=== PATIENT | female | born 1995 | race Caucasian/White ===

== ENCOUNTER 2016-10-05 17:41 | Inpatient (IN) | payer OTHER ==
[~2016-10-05] VITALS: Ht 154.9 cm; Wt 54.2 kg
[2016-10-05 17:43] VITALS: BP 127/79; PULSE 106; RESP 20; O2SAT 100
[2016-10-05 20:56] VITALS: BP 110/63; PULSE 89; O2SAT 99
--- NOTE | 2016-10-05 20:59 | ED.REPORT ---
HPI-Rash / Abscess Date of Service Oct 05, 2016 ED Provider: Larry Leone MD A 21 year old female with a history of depression, anxiety, panic disorder, borderline personality, and cystic acne presents to the ED complaining of a worsening abscess on her left shoulder. The pt was initially seen in Urgent Care for an I&D. The abscess was later reopened in the ED on 09/23/2016 and the pt was placed on Cephalexin, of which her last dose was this morning. The pt presents to the ED today because the abscess has been growing, hardening, and draining a significant amount. She denies fever, but Advil is no longer helping to relieve the pain. A wound culture was taken at [facility] and is due tomorrow, so sample is taken in the ED but is not sent. [place] sample is not visible in ED system. Nursing Notes Stated Complaint: ABCESS ON LEFT SHOULDER Chief Complaint: Skin Rash/Abscess Nursing Notes Reviewed: Yes ([facility], meds not reconciled) Allergies: Coded Allergies: No Known Allergies (Unverified , 10/02/16) General Time Seen by MD: 20:57 Chief Complaint Abscess Hx Obtained From: Patient Arrived By: Walk-in Symptom Duration: Since onset Recent Healthcare: Recent doctor visit, Recent hospitalization Similar Sx Previous: Yes Past Medical History Past Medical History cystic acne panic disorder depression anxiety borderline personality Past Surgical History I&D Smoking History Unknown if Ever Smoker Social History Alcohol Use: "Social" Other Social History: Poor social support Ambulatory Status Independent Review of Systems Review of Systems Note: abscess Constitutional: Reports: Fever Respiratory: Denies: Non-productive cough, Shortness of breath Cardiovascular: Denies: Chest pain GI: Denies: Abdominal pain, Nausea, Vomiting Musculoskeletal: Denies: Back pain, Neck pain Complete sys rev & neg: except as marked. Physical Exam Initial Vital Signs Vital Signs (First) Date Time Temp Pulse Resp B/P Pulse Ox O2 Delivery O2 Flow Rate FiO2 10/05/16 17:43 37.1 106 20 127/79 100 Room Air Initial VS: Reviewed, Vital signs abnormal General/Constitutional: Awake, Alert Skin: Color NL, Warm, Dry initial abscess incision site has no signs of cellulitis purulent drainage and tenderness inferior to this site, large area of swelling and tenderness no swelling or warmth, but concern for deep abscess multiple cutting scars on all extremities Head / Eyes: Atraumatic, Normocephalic, PERRL, EOMI ENT: Atraumatic, Airway patent, Mucous membranes moist Respiratory / Chest: Atraumatic, Breath sounds NL, Breath sounds = bilat, No respiratory distress Cardiovascular: Heart rate NL, Regular rhythm, Heart sounds NL Upper Extremity / MS: Atraumatic, Full range of motion Lower Extremity / Pelvis / MS: Atraumatic, Full range of motion Neurologic: Oriented X3, Speech NL, No motor deficits, No sensory deficits Neck: Atraumatic, Supple, Full range of motion Abdomen: Atraumatic, Soft, Non-tender Back: Atraumatic, Full range of motion Psychiatric: Affect NL, Mood NL Interpretation & Diagnostics Interpretation & Diagnostics: US Soft Tissue - Generic IMPRESSION: Findings consistent with confluent anscess formation/abscess in the proximal left arm. CT Angiogram Upper Extremity - Left IMPRESSION: Findings suspicious for myositis/fascitis involving the deltoid muscle associated with small ill-defined adjacent subcutaneous fat phlegmon/developing abscess. Small soft tissue defect noted in the lateral left ovary region suspect representing the site of incision and drainage. Lab Results Interpretation Result Diagram: 10/05/16223810/05/162238 Test 10/05/16 22:39 White Blood Count 8.2th/mm3 (3.8-10.1) Red Blood Count 3.87mil/mm3 (3.90-5.20) Hemoglobin 12.2g/dL (12.0-15.6) Hematocrit 35.3% (35.0-46.0) Mean Corpuscular Volume 91.2fL (81-100) Mean Corpuscular Hemoglobin 31.5pg (27.0-35.0) Mean Corpuscular Hemoglobin Concent 34.6% (32.0-37.0) Red Cell Distribution Width 11.8% (12.3-15.4) Platelet Count 272bil/L (150-400) Neutrophils (%) (Auto) 58.7% (40-74) Lymphocytes (%) (Auto) 27.1% (14-46) Monocytes (%) (Auto) 10.9% (4-12) Eosinophils (%) (Auto) 2.4% (0-5) Basophils (%) (Auto) 0.5% (0-3) Sodium Level 138mEq/L (134-144) Potassium Level 3.5mEq/L (3.5-5.2) Chloride Level 103mEq/L (97-108) Carbon Dioxide Level 22mmol/L (18-29) Blood Urea Nitrogen 8mg/dL (6-20) Creatinine 0.46mg/dL (0.57-1.00) Estimat Glomerular Filtration Rate 246mL/min (>59) Glucose Level 92mg/dL (60-99) Calcium Level 8.6mg/dL (8.5-10.1) Total Bilirubin 0.2mg/dL (0.0-1.2) Aspartate Amino Transf (AST/SGOT) 10U/L (0-50) Alanine Aminotransferase (ALT/SGPT) 5U/L (0-32) Alkaline Phosphatase 50U/L (25-150) Total Protein 6.7g/dL (6.4-8.4) Albumin 3.5g/dL (3.4-5.0) Human Chorionic Gonadotropin, Qual 0.500 (Negative) Hold Banda Top Tube Received (Received) Lab Results Interpretation: CBC normal CMP normal negative tox pending Patient has wound culture sent from [facility] on , results not currently available anticipated to be due tomorrow-so wound culture not repeated today Re-Eval/Medical Decision Med Decision/Clinical Course This is a 21-year-old healthy female who denies drug use presents with increasing pain and swelling in the left arm. Patient developed an abscess in the left shoulder that was drained on burn clinic, and came back in and had further drainage performed several days ago. She is in a rechecked was doing okay-but now has had increasing pain and swelling. She continued to have some purulent drainage-but now is having swelling and pain of an inch or 2 more distally in the arm. Eyes fevers or chills and has noticed complaints. She denies previous history of MRSA. She does have a history of self cutting. On exam she is nontoxic. Over the deltoid there is a simple 1 cm incision, which still has a trace amount of purulent coming from it without surrounding cellulitis. However distal this by about an inch and half and posterior is a large area of tenderness and possible fluctuance. I would again there is no external cellulitis and it feels like potentially deep abscess. The forms or murmurs are soft and nontender on the arm is neurovascularly intact. An ultrasound was obtained and confirms a distal abscess, and is not clearly evident that they the communicate given the concern for deeper abscess given the complete absence of overlying cellulitis, and the fact that this does not wheeze have the potential to communicate and be a more extensive abscess and be generally appropriate in the numbers department, discussed the case with surgery. They recommended obtaining CT imaging for surgical planning, admission to the hospitalist, and OR treatment is anticipated for the morning. The patient had been on cephalexin, and at this point is given IV clindamycin for polymicrobial coverage, along with MRSA coverage. The CT has been obtained and again suggests noncommunicating infection, and is also raised the concern by phone of the fascia reviewed the muscle, confirming that this drainage may best be performed in the OR setting. The patient is being admitted. The case is discussed with the hospitalist. Source of Hx: Old records Re-Evaluation/Progress : Time of Eval: 20:57 Patient Status: Condition unchanged Re-Evaluation/Progress Note: Pt informed of the need for admission and surgery during the initial interview. The pt understands and agrees with the plan. All questions are addressed at this time. Consultation #1: Referral / Consult Name: Cabrera Chaudhry MD Consulted With: Surgeon Call Returned at: 22:19 Home Companion: Agrees with eval, Agrees with plan Note: Consulted with Dr. Chaudhry, surgeon, regarding pt's case. Dr. Chaudhry recommends CT scan, admission, and possible surgery in the morning. Consultation #2: Referral / Consult Name: Radha Fernando MD Consulted With: Hospitalist Call Returned at: 23:57 Home Companion: Agrees with eval, Agrees with plan, Accepts admit Note: Spoke to Dr. Fernando, hospitalist, regarding pt's case. Dr. Fernando agrees with the evaluation and agrees to admit the pt. Counseled Regarding: Diagnosis, Lab results, Need for admission Discharge & Departure Impression: Primary Impression: Abscess of left arm Disposition: ADMITTED TO HOSPITAL Discharge Condition All VS Reviewed: Yes Condition: Stable Referrals: Case,Zahra SANDHU (PCP) Scribe Attestation Portions of this note were transcribed by Jeff Fletcher. I, Dr. Leone personally performed the history, physical exam and medical decision-making; I reviewed and confirmed the accuracy of the information in the transcribed note. Signed by: Alesia Lancaster, 10/06/2016, 00:33 copies to: Zahra Hyde Matthew F MD Oct 05, 2016 20:59 JEFF FLETCHER Oct 05, 2016 21:23
[2016-10-05] MEDS ORDERED: oxyCODONE-Acetamin 5-325 mg Tablet PO ONE (21:10)
[2016-10-05] MEDS ORDERED: Clindamycin Inj 900 MG in IV Premix 1 EACH IV ONE (22:25)
[2016-10-05] MEDS ORDERED: 0.9% Sodium Chloride 100 ML ONE (22:36)
[2016-10-05 22:49] LABS: BASOPHILS % (AUTO) 0.5 % (0-3); EOSINOPHILS % (AUTO) 2.4 % (0-5); MONOCYTES % (AUTO) 10.9 % (4-12); Mean Corpuscular Hemoglobin 31.5 pg (27.0-35.0); Mean Corpuscular Volume 91.2 fL (81-100); NEUTROPHILS % (AUTO) 58.7 % (40-74); Platelet Count 272 bil/L (150-400)
[2016-10-05 23:00] VITALS: BP 114/66; PULSE 85; O2SAT 100
[2016-10-06] VITALS (15 sets, daily range): BP systolic 101–125; BP diastolic 58–84; PULSE 14–136; RESP 11–20; O2SAT 92–100
[2016-10-06] MEDS ORDERED: 0.9% Sodium Chloride 1,000 ML IV SCH (00:21)
[2016-10-06] MEDS ORDERED: Ondansetron 2 mg/mL 2 mL Inj IVPUSH PRN ×4 (00:25→11:05)
[2016-10-06] MEDS ORDERED: Alum-Mag Hydrox-Simeth 30 mL Suspension PO PRN ×2 (00:25→00:50)
[2016-10-06] MEDS ORDERED: HYDROmorphone 0.5 mg/0.5 mL iSecure Syringe IVPUSH PRN (00:25)
[2016-10-06] MEDS ORDERED: LAMO200T2 PO (01:22)
[2016-10-06] MEDS ORDERED: CEPH500C PO (01:22)
[2016-10-06] MEDS ORDERED: KLO1T PO (01:22)
[2016-10-06] MEDS ORDERED: TRAZ-115 PO (01:22)
[2016-10-06] MEDS ORDERED: PROP10TA8 PO (01:22)
[2016-10-06] MEDS ORDERED: FLUO20TA28 PO (01:22)
[2016-10-06] MEDS ORDERED: HYDR100C2 PO (01:22)
[2016-10-06] MEDS: 0.9% Sodium Chloride 1,000 ML IV SCH ×2 (01:36→16:12)
--- NOTE | 2016-10-06 02:14 | PCM.HPMED ---
Subjective Date of Service Oct 06, 2016 Primary Provider: Admitting Physician: Radha Fernando MD Primary Care Physician: Zahra Hyde Attending Physician: Radha Fernando MD Admit Status: From the Emergency Department, 23-Hour Observation, Non-Telemetry Chief Complaint: Increasing swelling and pain left upper arm History of Present Illness: This is a 21-year-old female with a history of depression and anxiety panic disorder borderline personality disorder who comes in with increasing size and swelling of left upper arm. She was diagnosed with an abscess of her left upper arm she did have it incised and drained. This was done as an outpatient at her primary care provider's office [facility]. She was actually about 2 days ago. Is placed on oral Keflex and per ER doctor was thousand milligrams by mouth twice a day. He now notes increasing redness and swelling just below that area. She denies any fevers chills. She denies any drainage from it. Cultures are pending from the initial I&D. Her white count here is 8.2 with 59% polys 27% lymphs bicarbonate was noted to be 22. General surgery Dr. Chaudhry was also notified by ER Angela regarding this patient and he said to have a hospitalist do the admission and he will see the patient in the morning for possible OR I&D of this. Dr. Chaudhry suggested making the patient nothing by mouth after midnight. Patient does have a history of cystic acne and gets it on her face neck and shoulders and noted that the initial area started off appearing like cystic acne lesion. He does have a history of cutting but has not done that for 2 years. Allergies Coded Allergies: No Known Allergies (Unverified , 10/02/16) Home Medications Keflex thousand milligrams by mouth twice a day Other medications that she is on is pending at the time of this dictation for medication reconciliation. PMH History of anxiety and depression Panic disorder Borderline personality disorder Cystic acne Family History No history of recurrent infections or heart disease Social History Hx Alcohol Use: Yes (1-2/MONTH) Hx Substance Use: No Hx Tobacco Use: Yes (several cigarettes per week) Smoking Status: Unknown if Ever Smoker Living Arrangement: with Family Additional Information Patient denies any drug use such as heroin and cocaine and marijuana methamphetamine Exam Vital Signs Vital Sign - Last Date Time Temp Pulse Resp B/P Pulse Ox O2 Delivery O2 Flow Rate FiO2 10/06/16 01:42 36.4 92 111/69 10/05/16 23:00 100 Room Air 10/05/16 17:43 20 Exam Head: Normocephalic atraumatic. Eyes: PERRLA DC EOMI Neck, no adenopathy Chest: Clear to auscultation Cor: Regular rate and rhythm S1-S2 without murmur Abdomen: Soft nontender bowel sounds present Extremities: No pedal edema noted, does have area of incision at her upper left outer arm and just below that there is an indurated erythematous nondraining area noted Skin: No rashes but note above area on her left upper arm Psych: Appears to have normal mood and affect Neuro: Alert and oriented 3, motor and sensory are intact bilaterally Lab and Diagnostics Labs Laboratory Tests 72 Hours Test 10/05/16 22:39 White Blood Count 8.2th/mm3 (3.8-10.1) Red Blood Count 3.87mil/mm3 (3.90-5.20) Hemoglobin 12.2g/dL (12.0-15.6) Hematocrit 35.3% (35.0-46.0) Mean Corpuscular Volume 91.2fL (81-100) Mean Corpuscular Hemoglobin 31.5pg (27.0-35.0) Mean Corpuscular Hemoglobin Concent 34.6% (32.0-37.0) Red Cell Distribution Width 11.8% (12.3-15.4) Platelet Count 272bil/L (150-400) Neutrophils (%) (Auto) 58.7% (40-74) Lymphocytes (%) (Auto) 27.1% (14-46) Monocytes (%) (Auto) 10.9% (4-12) Eosinophils (%) (Auto) 2.4% (0-5) Basophils (%) (Auto) 0.5% (0-3) Sodium Level 138mEq/L (134-144) Potassium Level 3.5mEq/L (3.5-5.2) Chloride Level 103mEq/L (97-108) Carbon Dioxide Level 22mmol/L (18-29) Blood Urea Nitrogen 8mg/dL (6-20) Creatinine 0.46mg/dL (0.57-1.00) Estimat Glomerular Filtration Rate 246mL/min (>59) Glucose Level 92mg/dL (60-99) Calcium Level 8.6mg/dL (8.5-10.1) Total Bilirubin 0.2mg/dL (0.0-1.2) Aspartate Amino Transf (AST/SGOT) 10U/L (0-50) Alanine Aminotransferase (ALT/SGPT) 5U/L (0-32) Alkaline Phosphatase 50U/L (25-150) Total Protein 6.7g/dL (6.4-8.4) Albumin 3.5g/dL (3.4-5.0) Human Chorionic Gonadotropin, Qual 0.500 (Negative) Hold Banda Top Tube Received (Received) Result Diagram: 10/05/16223810/05/162238 Assessment & Plan # Left upper arm abscess, acute, present on admission Most likely related to cystic acne We will place on IV clindamycin Gen. surgery to see tomorrow for possible OR I&D # Psychiatric disorder, chronic, present on admission We will need to complete med this in reconciliation # Cystic acne, chronic, present on admission Continue current medication regimen # DVT prophylaxis Will use SCDs # CODE STATUS Full code Pain Evaluation: Adequate Pain Control VTE Mechanical Devices: Intermittant Pneumatic CD Resuscitation Status: CPR: Attempt Resuscitation Time spent 60 minutes Radha Fernando MD Oct 06, 2016 02:14
--- NOTE | 2016-10-06 03:46 | NUR ---
ADMIT Patient admit to MOC from the ED for surgery in the morning for Left arm abcess. Sore has been producing small amount of purulent drainage, requiring a couple of dressing changes. Patient has been cooperative with care. Reporting pain 4-5/10, mild nausea. Oriented to room and call light. Currently resting without issue.
[2016-10-06 03:56] LABS: APPEARANCE,URINE CLEAR (CLEAR,HAZY); COLOR,URINE YELLOW (YELLOW); OCCULT BLOOD,URINE NEGATIVE (NEGATIVE); PH,URINE 6.5 (5.0-8.0); UROBILINOGEN,URINE NORMAL (NORMAL)
[2016-10-06] MEDS: Clindamycin Inj 900 MG in IV Premix 1 EACH IV SCH ×2 (08:29→16:12)
--- NOTE | 2016-10-06 09:49 | NUR ---
To OR Pt left floor via stretcher to OR at 0930. IV WALT Addendum: 10/06/16 at 1326 by KATIE FLOWERS RN Pt arrived to room 240-1 via stretcher from OR at 1153.
--- NOTE | 2016-10-06 09:58 | DRSVH ---
PROCEDURE: CT UPPER EXTREMITY LT W CON INDICATIONS: 21 year-old female with reported history of left shoulder abscess status post I&D with w orsening infection. COMPARISON: [facility], , EXTREMITY LTD, 10/05/2016, 21:28. TECHNIQUE: Multiple 1 mm axial images obtained through the left shoulder following the administration of intravenous contrast. 1 mm coronal and sagittal reformations were performed. FINDINGS: Bones: No bony erosions or periosteal reaction. No fractures or dislocation. Soft tissues: There is a peripherally enhancing loculated collection measuring up to approximately 0. 6 cm in thickness tracking along the superficial fascia of the deltoid muscle involving approximately 9 cm in craniocaudal extent and approximately 6 cm in anteroposterior extent. Findings are compatib le with an abscess or phlegmon. There is mild hypoattenuation of the underlying deltoid muscle abelino tible with myositis. No intramuscular fluid collections. Mild overlying subcutaneous fat stranding is demonstrated as well as a cutaneous incision site overlying the proximal lateral aspect of the del toid. There are few mildly enlarged left axillary lymph nodes measuring up to 1 cm in short axis which are likely reactive. Visualized left lung is clear. IMPRESSION: 1. Loculated peripherally enhancing fluid collection tracking along the superficial fascia of the le ft deltoid muscle consistent with fasciitis with an abscess/phlegmon. Associated hypoattenuation of the deltoid muscle is consistent with myositis. 2. No evidence of osteomyelitis. Dictated by: Aakash Vogel M.D. on 10/06/2016 at 9:57 Approved by: Aakash Vogel M.D. on 10/06/2016 at 9:57
[2016-10-06] MEDS ORDERED: Lactated Ringer's 1,000 ML IV ONE (10:21)
[2016-10-06] MEDS ORDERED: Bupivacaine-MPF 0.5% W/EPI 30 mL Inj INFILTRATE ONE (10:25)
[2016-10-06] MEDS ORDERED: Acetaminophen IV 1,000 MG in IV Premix 1 EACH IV PRN (10:40)
[2016-10-06] MEDS ORDERED: diphenhydrAMINE 25 mg Capsule PO PRN (10:40)
--- NOTE | 2016-10-06 10:40 | DRSVH ---
CORRECTED ACCESSION/PLACER NUMBER ON 10/06/16 PROCEDURE: US EXTREMITY SONOGRAM LIMITED ([id number]) INDICATIONS: eval for ? abscess L arm TECHNIQUE: Real-time scanning was performed of the left shoulder region, with image documentation. COMPARISON: [facility], CT, CT UPPER EXTREMITY LT W CON, 10/05/2016, 23:53. FINDINGS: Several small hypoechoic regions within the soft tissues of the left shoulder are present. There is a cluster of adjacent hypoechoic foci, spanning roughly 27 mm x 9 mm x 32 mm, consistent wit h multiple small adjacent abscesses. Superior to this region, there are 2 adjacent foci measuring 7 m m and 4 mm. IMPRESSION: Multiple small regions of phlegmon/abscess within the left upper extremity. Dictated by: Mariza Castano M.D. on 10/06/2016 at 8:58 Approved by: Mariza Castano M.D. on 10/06/2016 at 8:58
[2016-10-06] MEDS ORDERED: Lactated Ringer's 1,000 ML IV SCH (11:03)
[2016-10-06] MEDS ORDERED: Lactated Ringer's 500 ML IV PRN (11:03)
--- NOTE | 2016-10-06 11:04 | PCM.HPANE ---
Patient Data Date of Service: Oct 06, 2016 Surgeon Admitting Provider:Radha Fernando MD Attending Provider:Radha Fernando MD Primary Care Physician:Zahra Hyde Other Provider: Reason for Visit L Deltoid Abscess Ht/WT & BMI Height (Feet): 5 Height (Inches): 1.00 Weight (Kilograms): 54.200 Body Mass Index 22.56 Allergies Coded Allergies: No Known Allergies (Unverified , 10/02/16) Diabetes History Hx Diabetes?: No MRSA MRSA: No Medications Home Meds Incl Beta Christian: No Reported Medications Clonazepam 1 Mg Tablet1 Mg PO TID #90 10/06/16 Fluoxetine 20 Mg TabletUnknown Dose PO DAILY #30 10/06/16 Lamotrigine 200 Mg [id number] Mg PO HS #30 10/06/16 Propranolol HCl 10 Mg [id number] Mg PO BID #60 10/06/16 Hydroxyzine Pamoate (HydrOXYzine Pamoate)100 Mg [id number] Mg PO DIRECTED PRN For Anxiety or Agitation #30 10/06/16 Trazodone 50 Mg [id number] Mg PO HS #30 10/06/16 Cephalexin 500 Mg Capsule1,000 Mg PO BID #40 10/06/16 History History of ENT Problems?: No Hx of Heart Problems?: No Cardiovascular History: Denies:: Congestive Heart Failure Hypertension Hx of Respiratory Problem?: Yes Respiratory History: Positive for:: Asthma Denies:: Tuberculosis Hx Neurologic Problems?: No Hx of GI Problems?: Yes Hx of Problems?: Yes Genitourinary History: Positive for:: Urinary Tract Infection Female Hx: Denies:: Currently Pelvic Inflammatory Problems with Breasts? Hx Musculoskeletal Problems?: No Hx of Psycho/Social Problems?: Yes Psycho Social History: Positive for:: Anxiety Denies:: Hx Depression Hx Surgeries?: No Hx Any Other Health Problems?: No History Blood Transfusions: Positive for:: Accept Blood Products? Denies:: Blood Transfusions Hx Diabetes: No Hx Alcohol Use: Yes (1-2/MONTH)Hx Substance Use: No Smoking Status: Unknown if Ever Smoker Approx How Many Cigarettes/day: 0-2 Stop/Bang Treated for Sleep Apnea?: No Do You Have a CPAP Machine?: No S-Snoring: Do You Snore Loudly: No T-Tired: feel tired, fatigued: No O-Obsered: Observed not breath: No P-Blood Pressure: treated: No B- Body Mass Index > 35 kg/m2: No A- Age over 50: No N- Neck Large Circumference: No G- Gender Male: No ARMANDO Total Score: 0 ARMANDO Risk Assessment: Low Risk, <3 Yes Risk Assessment Category Category 1A: Patient has history of documented sleep apnea, and HAS NOT received any narcotic, sedative or anesthesia administration during this stay. Category 1B: Patient has history of documented sleep apnea, and HAS received any narcotic , sedative or anesthesia administration during this stay Category 2: Patient has SUSPECTED Obstructive Sleep Apnea, and HAS received any narcotic , sedative or anesthesia administration during this stay. Category 3: Patient has SUSPECTED Obstructive Sleep Apnea and HAS NOT received narcotic, sedative or anesthesia administration during this stay. Category 4: Outpatient in Procedural Areas with known sleep apnea or who screen positive for High Risk via the STOP/BANG questionnaire. Exam Exam Vital Signs Vital Signs Date Time Temp Pulse Resp B/P Pulse Ox O2 Delivery O2 Flow Rate FiO2 10/06/16 11:00 136 14 125/74 99 Room Air 10/06/16 10:55 36.1 122 19 111/58 97 Simple Mask 8 10/06/16 08:35 36.5 96 16 101/69 100 Room Air General Appearance: Alert, Oriented X3 HEENT/AIRWAY: MP 1 Lungs: Clear to Auscultation Heart: Exam Unremarkable Meds/Labs/Diagnostics Admission Meds Current Medications Oxycodone/ Acetaminophen 2 tab 2 tab ONCE ONCE PO Last administered on 21:29; Start 10/05/16 at 21:10; Stop 10/05/16 at 21:11; Status DC Clindamycin Phosphate/ Dextrose 900 mg/ Premix 50 ml @ 100 mls/hr ONCE ONCE IV Last administered on 10/05/16 22:46; Start 10/05/16 at 22:25; Stop 10/05/16 at 22:54; Status DC Sodium Chloride 100 ml @ ud STK-MED ONCE .ROUTE Last administered on 10/05/16 22:46; Start 10/05/16 at 22:36; Stop 10/05/16 at 22:37; Status DC Sodium Chloride 1,000 ml @ 100 mls/hr Q10H IV Last administered on 10/06/16 01 :36; Start 10/06/16 at 00:50 Clindamycin Phosphate/ Dextrose 900 mg/ Premix 50 ml @ 100 mls/hr Q8 IV Last administered on 10/06/16 08:29; Start 10/06/16 at 08:30 Lactated Ringer's (Lr) 1,000 ml @ ud STK-MED ONCE IV Last administered on 10:21; Start 10/06/16 at 10:21; Stop 10/06/16 at 10:24; Status DC Bupivacaine HCl/ Epinephrine Bitart (Sensorcaine-MPF 0.5% W/EPI Inj) 30 ml STK- MED ONCE INFILTRATE Last administered on 10/06/16 10:25; Start 10/06/16 at 10:25 ; Stop 10/06/16 at 10:26; Status DC Labs Test 10/05/16 22:39 10/06/16 03:00 White Blood Count 8.2th/mm3 (3.8-10.1) Red Blood Count 3.87mil/mm3 (3.90-5.20) Hemoglobin 12.2g/dL (12.0-15.6) Hematocrit 35.3% (35.0-46.0) Mean Corpuscular Volume 91.2fL (81-100) Mean Corpuscular Hemoglobin 31.5pg (27.0-35.0) Mean Corpuscular Hemoglobin Concent 34.6% (32.0-37.0) Red Cell Distribution Width 11.8% (12.3-15.4) Platelet Count 272bil/L (150-400) Neutrophils (%) (Auto) 58.7% (40-74) Lymphocytes (%) (Auto) 27.1% (14-46) Monocytes (%) (Auto) 10.9% (4-12) Eosinophils (%) (Auto) 2.4% (0-5) Basophils (%) (Auto) 0.5% (0-3) Sodium Level 138mEq/L (134-144) Potassium Level 3.5mEq/L (3.5-5.2) Chloride Level 103mEq/L (97-108) Carbon Dioxide Level 22mmol/L (18-29) Blood Urea Nitrogen 8mg/dL (6-20) Creatinine 0.46mg/dL (0.57-1.00) Estimat Glomerular Filtration Rate 246mL/min (>59) Glucose Level 92mg/dL (60-99) Calcium Level 8.6mg/dL (8.5-10.1) Total Bilirubin 0.2mg/dL (0.0-1.2) Aspartate Amino Transf (AST/SGOT) 10U/L (0-50) Alanine Aminotransferase (ALT/SGPT) 5U/L (0-32) Alkaline Phosphatase 50U/L (25-150) Total Protein 6.7g/dL (6.4-8.4) Albumin 3.5g/dL (3.4-5.0) Human Chorionic Gonadotropin, Qual 0.500 (Negative) Hold Banda Top Tube Received (Received) Urine Color Yellow (YELLOW) Urine Appearance Clear (CLEAR,HAZY) Urine pH 6.5 (5.0-8.0) Urine Specific [place] 1.010 (1.003-1.035) Urine Protein Negativemg/dL (NEG,TRACE) Urine Glucose (UA) Negativemg/dL (NEGATIVE) Urine Ketones Negativemg/dL (NEGATIVE) Urine Occult Blood Negative (NEGATIVE) Urine Nitrite Positive (NEGATIVE) Urine Bilirubin Negative (NEGATIVE) Urine Urobilinogen Normalmg/dL (NORMAL) Urine Leukocyte Esterase Trace (NEGATIVE) Urine RBC 0-2/hpf (0-2) Urine WBC 0-5/hpf (0-5) Urine Epithelial Cells Moderate/hpf (NONE-MOD) Urine Crystals None seen (NONE SEEN) Urine Bacteria None/hpf (NONE-FEW) Urine Hyaline Casts None/lpf (NONE) Urine Granular Casts None seen (NONE SEEN) Urine Waxy Casts None seen (NONE SEEN) Urine Red Blood Cell Casts None seen (NONE SEEN) Urine White Blood Cell Casts None seen (NONE SEEN) Urine Mucus None seen (None Seen) Urine Trichomonas None seen (NONE SEEN) Urine Yeast None (NONE SEEN) Urine Culture Reflexed Indicated Urine Opiates Screen Negative Urine Methadone Screen Negative Urine Barbiturates Screen Negative Urine Amphetamines Screen Negative Urine Benzodiazepines Screen Negative Urine Cocaine Metabolite Screen Negative Urine Cannabinoids Screen Negative Plan Impression Patient chart reviewed, patient interviewed and anesthestic plan with risks, benefits, and alternatives discussed, and informed consent obtained. ASA Physical Status: ASA2 Mod Systemic Disease Anesthetic Plan: GA Bene/Risks/Altern/Consents: Yes HP Complete Prior to Induction: Yes Keny Gonzales MD Oct 06, 2016 11:04
[2016-10-06] MEDS ORDERED: fentaNYL-PF 50 mCg/mL 2 mL Inj IVPUSH PRN (11:05)
[2016-10-06] MEDS ORDERED: MetoCLOpramide 5 mg/mL 2 mL Inj IVPUSH PRN (11:05)
[2016-10-06] MEDS ORDERED: Dexamethasone 4 mg/mL Inj IVPUSH PRN (11:05)
[2016-10-06] MEDS ORDERED: HYDROmorphone 1 mg/mL Inj IVPUSH PRN (11:05)
[2016-10-06] MEDS ORDERED: Phenylephrine 10,000 mCg/mL Inj IVPUSH PRN (11:05)
[2016-10-06] MEDS ORDERED: EPHEDrine Sulfate 50 mg/mL Inj IVPUSH PRN (11:05)
--- NOTE | 2016-10-06 11:05 | PCM.ANEP1 ---
Post Anesthesia Phase 1 PACU Phase 1 Assessment Date of Service: Oct 06, 2016 Vital Signs Vital Signs Date Time Temp Pulse Resp B/P Pulse Ox O2 Delivery O2 Flow Rate FiO2 10/06/16 11:00 136 14 125/74 99 Room Air 10/06/16 10:55 36.1 122 19 111/58 97 Simple Mask 8 10/06/16 08:35 36.5 96 16 101/69 100 Room Air Anesthetic Administered: GA Pain: Yes Pain Scale Score: 4 Nausea or Vomiting: No Oxygen Delivery: Room Air Lungs: Clear to Auscultation Keny Gonzales MD Oct 06, 2016 11:05
[2016-10-06] MEDS ORDERED: Ketamine 10 mg/mL 20 mL Inj ONE (11:07)
--- NOTE | 2016-10-06 11:08 | PCM.ANEP2 ---
Post Anesthesia Evaluation ASA/CMS Post Anesthesia VS in Patient's Normal Range?: Yes Resp Stable; Airway Patent?: Yes CV Function & Hydration Stable: Yes Mental Status Recovered?: Yes Pain control Satisfactory?: Yes N/V Control Satisfactory?: Yes Keny Gonzales MD Oct 06, 2016 11:08
--- NOTE | 2016-10-06 11:08 | CONS ---
[address] [address] CONSULTATION REPORT PATIENT: HAILEY LOMBARDI : 1995 MR#: [id number] ADMIT: 10/05/2016 JOB ID: [id number] DATE OF SERVICE: 10/06/2016 CHIEF COMPLAINT/IDENTIFICATION: I have been asked to see this 21-year-old female with left shoulder abscess. HISTORY OF PRESENT ILLNESS: The patient presented on October 02 with a 4-day-old abscess on the left shoulder. She underwent what was described as a 2 cm incision and drainage with packing in the emergency department, but now returns with increased left shoulder pain, and a CT scan and ultrasound suggestive of extending abscess. The patient has a history of cutting reportedly in the distant past, and cystic acne. PAST MEDICAL HISTORY: As above. MEDICATIONS: The patient is currently in the hospital on IV clindamycin. PHYSICAL EXAMINATION: She is nontoxic. She has old scar fixation on both extremities, multiple tattoos. She does have what appears to be some more recent injuries on the distal left forearm. On the left shoulder, she has a punctate lesion with some expressible pus, no clear fluctuance, and what appears to have been the erythema that has completely resolved by markings. LABORATORY DATA: White count is 8.2, hematocrit 35.2. IMAGING: She has had upper extremity CT and ultrasound that seems to demonstrate some loculated peripherally enhancing fluid tracking along the superficial fascia of the left deltoid muscle consistent with fasciitis versus abscess versus phlegmon, with some suggestion of myositis. IMPRESSION/PLAN: It seems that this woman has a soft tissue infection that would benefit from wider opening, as she may have undrained pus deep, but she also may have the beginnings of some sort of fasciitis. We discussed the length of the incision and the location, and the patient and her mother agreed to proceed. We will go to the operating room later this morning.
--- NOTE | 2016-10-06 11:16 | OP ---
[address] [address] OPERATIVE REPORT PATIENT: HAILEY LOMBARDI : 1995 MR#: [id number] ADMIT: 10/05/2016 JOB ID: [id number] DATE OF SURGERY: 10/06/2016 PREOPERATIVE DIAGNOSIS(ES): Left arm abscess. POSTOPERATIVE DIAGNOSIS(ES): Left arm abscess. PROCEDURE PERFORMED: Incision and drainage of left arm abscess. SURGEON: Aurelio Wright MD. INDICATIONS: A 21-year-old female with a left arm abscess. FINDINGS: The patient had a collapsed abscess cavity that extended for 15 cm as described below. DESCRIPTION OF PROCEDURE: The patient was brought to the operating room. General anesthetic was administered with an LMA. Left shoulder was prepped and draped in a sterile fashion. Surgical time-out was performed. The patient was on therapeutic antibiotics. There was no real expressible pus from out the punctate incision from compressing the left upper arm. I placed one leg of DeBakey forceps through this, and was able to track down distally to the area of maximal tenderness. I used cautery to cut down on this arm of the forceps, extending the incision for 15 cm, which was the length of the undermining. The patient essentially had a collapsed abscess cavity with some disruption of the fascial planes external to the deltoid muscle. There was no significant pus to be drained but the patient did have clear evidence of soft tissue infection with some undermining but no extensive fasciitis. I did break up any loculations along the external surface of the deltoid fascia with my finger, irrigated out with sterile saline. Hemostasis was achieved with cautery and we then packed the wound with a single 4 x 4 gauze, followed by a dry dressing. The patient was extubated and transferred to the recovery room, where she was awakening. She may well go home later on today with followup [facility].
[2016-10-06] MEDS ORDERED: Propofol 10,000 mCg/mL 20 mL Inj ONE (12:13)
[2016-10-06] MEDS ORDERED: Dexamethasone 4 mg/mL Inj ONE (12:13)
[2016-10-06] MEDS ORDERED: Lidocaine PF 1% 30 mL Inj ONE (12:13)
[2016-10-06] MEDS ORDERED: Ondansetron 2 mg/mL 2 mL Inj ONE (12:13)
[2016-10-06] MEDS ORDERED: fentaNYL-PF 50 mCg/mL 2 mL Inj ONE (13:46)
--- NOTE | 2016-10-06 14:35 | NUR ---
Social Work Screening/Readiness for Discharge D: EMR Reviewed. Pt is a 21Y old female Igor for L Deltoid Abscess. Insurance is [employer]. PCP is dr. Zahra Hyde. Per EMR, Pt lives at home with family in [place]. Pt is diagnoses with Anxiety, Depression, Panic Disorder and BPD. Pt has a history of self harm and cystic acne. No identified IVDU. Pt was seen by surgery and underwent an I&D this morning to drain the abcess. SW anticipates Pt to discharge in 1-2 pending clinical course. SW will need to follow up with family and ensure no discharge needs based on significant MH diagnosis. SW anticipates Pt to discharge home with no needs via POV when medically stable. A: Pt with MH diagnosis P: SW anticipates Pt to discharge home via POV with no needs when medically stable. SW will need to follow up with Pt at bedside to ensure no discharge needs. SW will continue to follow. OBINNA Tsang
--- NOTE | 2016-10-06 17:45 | NUR ---
Dressing Dressing beginning to slip down pt arm and partially exposing I/D wound. Dressing reinforced with Kerlix. Dressing changes to be completed BID beginning 1/4 AM.
--- NOTE | 2016-10-06 19:57 | PCM.PNMED ---
Subjective Date of Service Oct 06, 2016 Subjective Patient now postop, pain is controlled. No fevers or chills, nausea vomiting. Decreased appetite Exam Vital Signs Vital Sign - Last Date Time Temp Pulse Resp B/P Pulse Ox O2 Delivery O2 Flow Rate FiO2 10/06/16 16:53 37.5 103 16 115/81 99 Room Air 10/06/16 10:55 8 Intake and Output 10/05/16 10/05/16 10/06/16 Cumulative From/Thru 15:00 23:00 07:00 10/05/16 17:43 - 10/06/16 03:00 Intake Total 260 ml 260 ml Balance 260 ml 260 ml IV Total 260 ml 260 ml Exam General: Alert, Oriented X3, NAD Head: Normocephalic, atraumatic Eyes: NAVIN, EOMI, no scleral Icterus Chest: clear to auscultation B/L, no wheezing rales or rhonchi Heart: Regular rate and rhythm. Normal S1, S2, no murmurs noted Abdomen: soft, non-tender. Bowel sounds are normoactive. No guarding or rebound. Extremities: no cyanosis, clubbing or edema. Left shoulder bandage clean and dry IVs and Medications Medications Reviewed: Medications were reviewed in detail Lab and Diagnostics Result Diagram: 10/05/16223810/05/162238 Assessment & Plan # Left upper arm abscess, acute, present on admission Most likely related to cystic acne which is how it started according to the patient. She had popped the acne at least once. Continue IV clindamycin She was taken to surgery for I&D today, 15 cm collapsed abscess noted. # Psychiatric disorder, chronic, present on admission -Continue home meds # Cystic acne, chronic, present on admission Continue current medication regimen # DVT prophylaxis Will use SCDs # CODE STATUS Full code . Disposition: Likely home tomorrow VTE Mechanical Devices: Intermittant Pneumatic CD Resuscitation Status: CPR: Attempt Resuscitation Yair Iyer DO Oct 06, 2016 19:57
[2016-10-07] MEDS: Clindamycin Inj 900 MG in IV Premix 1 EACH IV SCH ×2 (00:23→08:03)
[2016-10-07] MEDS: 0.9% Sodium Chloride 1,000 ML IV SCH (00:24)
[2016-10-07 00:32] VITALS: BP 106/68; PULSE 79; RESP 16; O2SAT 99
[2016-10-07 05:00] VITALS: BP 102/64; PULSE 80; RESP 12; O2SAT 99
--- NOTE | 2016-10-07 05:30 | NUR ---
L arm Wound s/p I/D on 10/06/10, left arm with gauze dressing c/d/i, pending wound culture
[2016-10-07 07:09] LABS: BASOPHILS % (AUTO) 0.2 % (0-3); EOSINOPHILS % (AUTO) 0.3 % (0-5); MONOCYTES % (AUTO) 10.8 % (4-12); Mean Corpuscular Hemoglobin 31.6 pg (27.0-35.0); NEUTROPHILS % (AUTO) 72.8 % (40-74); Platelet Count 288 bil/L (150-400)
[2016-10-07 08:30] VITALS: BP 102/66; PULSE 77; RESP 18; O2SAT 98
[2016-10-07] MEDS ORDERED: CLIN-78 PO (10:24)
--- NOTE | 2016-10-07 10:25 | PCM.DIMED ---
Discharge Instructions Date of Service Oct 07, 2016 Dates of Hospitalization Oct 05, 2016 at 23:02 Discharge Diagnosis Discharge Diagnosis Cellulitis with abscess Diet No restrictions Activity Limited until seen by PCP Call your provider Fever or Chills, Bleeding, Chest pain, Excessive diarrhea, Weakness (unilateral) Patient Instructions Follow-up plan follow up with surgery in 1 week Follow-up with PCP in: 1 week Yair Iyer DO Oct 07, 2016 10:25
--- NOTE | 2016-10-07 10:51 | NUR ---
Social Work: Readiness for d/c Data: Pt is on day 2 of hospitalization. EMR reviewed, pt discussed in rounds. MD states pt likely to d/c today. FISH FARMER met with pt and mother regarding pt's mental health history. Pt states that she is working with her PCP to find an outpt MH counselor and declined any resources form [employer]. No further d/c needs anticipated at this time. FISH FARMER will continue to follow if needs arise. Assessment: Pt who is independent at baseline. Plan: Pt will d/c home via POV with mother when ready for d/c, likely today. Pt declining MH resources and getting set up with counselor through PCP. No further d/c needs anticipated at this time. FISH FARMER will continue to follow if needs arise. OBINNA Ogden
--- NOTE | 2016-10-07 11:18 | NUR ---
Social Work: Discharge Data: Pt is on day 2 of hospitalization. D/C orders are in. Pt states that she is working with her PCP to find an outpt MH counselor and declined any resources from [employer]. No further d/c needs anticipated at this time. BOAT OAR MAKER will continue to follow if needs arise. Assessment: Pt who is independent at baseline. Plan: Pt will d/c home via POV with mother today. Pt declining MH resources and getting set up with counselor through PCP. No further d/c needs anticipated at this time. [employer]KER will continue to follow if needs arise. OBINNA Ogden
--- NOTE | 2016-10-07 14:00 | NUR ---
Discharge Patient discharge ambulatory accompanied by her mom. Notes, instructions and hard copy of script given and well understood by patient and parent. Denies any discomfort at the time of discharge. Personal belongings and items from the safe given to patient.
--- NOTE | 2016-10-07 19:51 | PCM.DC.MED ---
Discharge Summary Date of Service Oct 07, 2016 Dates of Hospitalization Date of Hospital Admission Oct 05, 2016 at 23:02 Date of Discharge: Oct 07, 2016 Providers: Admitting Physician: Radha Fernando MD Primary Care Physician: Zahra Hyde Attending Physician: Radha Fernando MD Diagnosis at Time of Discharge Diagnosis at Time of Discharge Cellulitis with abscess Consultations Surgery Procedures XRay, CTs & MRIs Left upper extremity CT IMPRESSION: 1. Loculated peripherally enhancing fluid collection tracking along the superficial fascia of the left deltoid muscle consistent with fasciitis with an abscess/phlegmon. Associated hypoattenuation of the deltoid muscle is consistent with myositis. 2. No evidence of osteomyelitis. Invasive Procedures I&D of left shoulder abscess Brief History This is a 21-year-old female with a history of depression and anxiety panic disorder borderline personality disorder who comes in with increasing size and swelling of left upper arm. She was diagnosed with an abscess of her left upper arm she did have it incised and drained. This was done as an outpatient at her primary care provider's office [facility]. She was actually about 2 days ago. Is placed on oral Keflex and per ER doctor was thousand milligrams by mouth twice a day. He now notes increasing redness and swelling just below that area. She denies any fevers chills. She denies any drainage from it. Cultures are pending from the initial I&D. Her white count here is 8.2 with 59% polys 27% lymphs bicarbonate was noted to be 22. General surgery Dr. Chaudhry was also notified by ER Angela regarding this patient and he said to have a hospitalist do the admission and he will see the patient in the morning for possible OR I&D of this. Dr. Chaudhry suggested making the patient nothing by mouth after midnight. Patient does have a history of cystic acne and gets it on her face neck and shoulders and noted that the initial area started off appearing like cystic acne lesion. She does have a history of cutting but has not done that for 2 years. Hospital Course She was admitted for left upper extremity abscess, surgery was consulted. She was taken to the OR for an I&D 10/06/2016 with no reported complications. She was observed overnight and did well. She was discharged home in stable condition. Prescription for clindamycin was sent with her at discharge. She will need follow-up with her PCP in one week, sooner if condition worsens in anyway. She was also instructed to follow-up with surgery. Delineated problem list as below # Left upper arm abscess, acute, present on admission Most likely related to cystic acne which is how it started according to the patient. She had popped the acne at least once. Continue IV clindamycin She was taken to surgery for I&D today, 15 cm collapsed abscess noted. # Psychiatric disorder, chronic, present on admission -Continue home meds # Cystic acne, chronic, present on admission Continue current medication regimen Exam Vital Signs (Last) Date Time Temp Pulse Resp B/P Pulse Ox O2 Delivery O2 Flow Rate FiO2 10/07/16 08:30 36.6 77 18 102/66 98 Room Air 10/06/16 10:55 8 Test 10/05/16 22:39 10/06/16 03:00 10/07/16 06:15 Total Bilirubin 0.2mg/dL (0.0-1.2) Aspartate Amino Transf (AST/SGOT) 10U/L (0-50) Alanine Aminotransferase (ALT/SGPT) 5U/L (0-32) Alkaline Phosphatase 50U/L (25-150) Total Protein 6.7g/dL (6.4-8.4) Albumin 3.5g/dL (3.4-5.0) Human Chorionic Gonadotropin, Qual 0.500 (Negative) Hold Banda Top Tube Received (Received) Urine Color Yellow (YELLOW) Urine Appearance Clear (CLEAR,HAZY) Urine pH 6.5 (5.0-8.0) Urine Specific [place] 1.010 (1.003-1.035) Urine Protein Negativemg/dL (NEG,TRACE) Urine Glucose (UA) Negativemg/dL (NEGATIVE) Urine Ketones Negativemg/dL (NEGATIVE) Urine Occult Blood Negative (NEGATIVE) Urine Nitrite Positive (NEGATIVE) Urine Bilirubin Negative (NEGATIVE) Urine Urobilinogen Normalmg/dL (NORMAL) Urine Leukocyte Esterase Trace (NEGATIVE) Urine RBC 0-2/hpf (0-2) Urine WBC 0-5/hpf (0-5) Urine Epithelial Cells Moderate/hpf (NONE-MOD) Urine Crystals None seen (NONE SEEN) Urine Bacteria None/hpf (NONE-FEW) Urine Hyaline Casts None/lpf (NONE) Urine Granular Casts None seen (NONE SEEN) Urine Waxy Casts None seen (NONE SEEN) Urine Red Blood Cell Casts None seen (NONE SEEN) Urine White Blood Cell Casts None seen (NONE SEEN) Urine Mucus None seen (None Seen) Urine Trichomonas None seen (NONE SEEN) Urine Yeast None (NONE SEEN) Urine Culture Reflexed Indicated Urine Opiates Screen Negative Urine Methadone Screen Negative Urine Barbiturates Screen Negative Urine Amphetamines Screen Negative Urine Benzodiazepines Screen Negative Urine Cocaine Metabolite Screen Negative Urine Cannabinoids Screen Negative White Blood Count 11.5th/mm3 (3.8-10.1) Red Blood Count 3.45mil/mm3 (3.90-5.20) Hemoglobin 10.9g/dL (12.0-15.6) Hematocrit 31.4% (35.0-46.0) Mean Corpuscular Volume 91.0fL (81-100) Mean Corpuscular Hemoglobin 31.6pg (27.0-35.0) Mean Corpuscular Hemoglobin Concent 34.7% (32.0-37.0) Red Cell Distribution Width 11.6% (12.3-15.4) Platelet Count 288bil/L (150-400) Neutrophils (%) (Auto) 72.8% (40-74) Lymphocytes (%) (Auto) 15.4% (14-46) Monocytes (%) (Auto) 10.8% (4-12) Eosinophils (%) (Auto) 0.3% (0-5) Basophils (%) (Auto) 0.2% (0-3) Sodium Level 140mEq/L (134-144) Potassium Level 4.4mEq/L (3.5-5.2) Chloride Level 106mEq/L (97-108) Carbon Dioxide Level 21mmol/L (18-29) Blood Urea Nitrogen 5mg/dL (6-20) Creatinine 0.44mg/dL (0.57-1.00) Estimat Glomerular Filtration Rate 259mL/min (>59) Glucose Level 83mg/dL (60-99) Calcium Level 8.5mg/dL (8.5-10.1) Discharge Medications Discharge Medications Clindamycin (Clindamycin) 300 Mg Capsule 300 MG PO QID Prescribed by: MARTHA IYER DO Clonazepam (Clonazepam) 1 Mg Tablet 1 MG PO TID (Reported) Fluoxetine (Fluoxetine) 20 Mg Tablet Unknown Dose PO DAILY (Reported) Lamotrigine (Lamotrigine) 200 Mg Tablet 200 MG PO HS (Reported) Propranolol HCl (Propranolol HCl) 10 Mg Tablet 10 MG PO BID (Reported) Trazodone (Trazodone) 50 Mg Tablet 50-100 MG PO HS (Reported) As needed Hydroxyzine Pamoate (HydrOXYzine Pamoate) 100 Mg Capsule 25-100 MG PO DIRECTED PRN PRN For Anxiety or Agitation (Reported) Followup Plan Follow-up plan follow up with surgery in 1 week Discharge Diet: No restrictions Discharge Activity: Limited until seen by PCP Follow-up with PCP in: 1 week Time spent 45 minutes Martha Iyer DO Oct 07, 2016 19:51
== END 2016-10-07 13:45 | disposition home or self-care (01) | DRG 603 ==
LOC: SED 17:41 → OBSVTOIN 23:02 → OFED 23:02 → MOC 10-06 02:00
PROVIDERS: ADMIT Specialist; ATTEND Specialist
PROC: 0J9F0ZX Drainage of Left Upper Arm Subcutaneous Tissue and Fascia, Open Approach, Diagnostic (ICD-10-PCS; principal; 2016-10-06 10:00)
DX: L02.414 Cutaneous abscess of left upper limb (principal); F41.8 Other specified anxiety disorders; F60.3 Borderline personality disorder; F41.0 Panic disorder [episodic paroxysmal anxiety]; L03.114 Cellulitis of left upper limb; F17.200 Nicotine dependence, unspecified, uncomplicated; L70.0 Acne vulgaris; M60.9 Myositis, unspecified; B95.62 Methicillin resistant Staphylococcus aureus infection as the cause of diseases classified elsewhere

== ENCOUNTER 2016-11-27 06:36 | Inpatient (IN) | payer OTHER ==
[2016-11-27] VITALS (12 sets, daily range): BP systolic 95–116; BP diastolic 52–74; PULSE 63–92; RESP 11–19; O2SAT 96–100
[~2016-11-27] VITALS: Ht 165.1 cm; Wt 53.2 kg
[~2016-11-27 06:36] MED LIST: CLIN-78 PO; FLUO20TA28 PO; HYDR100C2 PO; KLO1T PO; LAMO200T2 PO; PROP10TA8 PO; TRAZ-115 PO
[2016-11-27] MEDS ORDERED: 0.9% Sodium Chloride 1,000 ML IV ONE ×2 (07:07→11:20)
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
[2016-11-27 07:21] LABS: Mean Corpuscular Hemoglobin 31.5 pg (27.0-35.0); Mean Corpuscular Volume 92.2 fL (81-100)
--- NOTE | 2016-11-27 07:28 | ABG ---
DateTimeAnalyzed 07:22:00 -_ pH ____7.328 - 7.350 7.450 pCO2 ___44.0__ -mmHg 35.0 45.0 pO2 ___93.6__ -mmHg 69.0 116 HCO3- ___22.4__ -mmol/L 22.0 26.0 ABE ___-2.9__ -mmol/L -2.0 2.0 tHb ___11.0__ -g/dL O2Hb ___95.8__ -% COHb ____0.7__ -% MetHb ____0.9__ -% sO2 ___97.4__ -% FIO2 ___21.0__ -% Drawn By btl - Date/Time Notified____ 07:27:00 -_ Oxygen Device 1 _ROOM AIR - Notified By Btl - Notified Whom ___Dr. adrián laursen -__ B 761 -mmHg tO2 ___14.9__ -Vol% Beni test N/A -
[2016-11-27] MEDS ORDERED: FLUO40CA PO (10:07)
[2016-11-27] MEDS ORDERED: Polyethylene Glycol (PEG) 17 Gm Powder PO PRN (10:10)
[2016-11-27] MEDS ORDERED: Alum-Mag Hydrox-Simeth 30 mL Suspension PO PRN (10:10)
[2016-11-27 11:19] LABS: Magnesium 2.2 mg/dL (1.6-2.6)
--- NOTE | 2016-11-27 12:45 | NUR ---
Admit Pt admitted to [facility] at 1230 from ER. No c/o pain, full body assessment done. Generalized bruising, left forearm in dressing changed in ER from old cut. Vitals stable, tele placed and is SR. All belongings brought up with. Oriented to room and call light. Mother at the bedside. Sitter in the room.
[2016-11-27] MEDS: Ondansetron 2 mg/mL 2 mL Inj IVPUSH PRN ×2 (14:32→20:22)
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
[2016-11-27] MEDS: 0.9% Sodium Chloride 1,000 ML IV SCH (20:13)
[2016-11-28] VITALS (9 sets, daily range): BP systolic 95–108; BP diastolic 57–65; PULSE 72–84; RESP 16–18; O2SAT 98–100
--- NOTE | 2016-11-28 01:35 | NUR ---
P) LOC/ Behavior/respiratory Pt. drowsy, oriented x3 but forgetful and occasionally confused, initially interacting with mother and boyfriend and seemed to enjoy the attention, slept a few hours after they left, now awake and pulling at things, especially her catheter. Lungs coarse with some crackles in L base, SPO2 in upper 90's on room air, affect is pleasant but attention seeking. I) Continue to monitor, has a sitter. IV infusing at 80ml/hr., urine dark yadira. E) Currently resting in bed, very fidgety and impulsive.
[2016-11-28 04:32] LABS: Mean Corpuscular Hemoglobin 31.3 pg (27.0-35.0)
[2016-11-28] MEDS: 0.9% Sodium Chloride 1,000 ML IV SCH ×2 (08:44→21:14)
[2016-11-28] MEDS: Ondansetron 2 mg/mL 2 mL Inj IVPUSH PRN ×2 (08:51→13:03)
--- NOTE | 2016-11-28 10:00 | NUR ---
Nausea/Ambulation Pt stated she was slightly nauseated this am after ambulating. Administered 4mg Zofran. During rounds discussed with MD's about starting clear liquid diet and advancing as tolerated. Pt took in some ice chips and apple juice and so far no vomiting noted nor nausea. Pt wanting to get up this am and walk around room. Pt able to stand and walk 200ft w/ FWW and 2 person ast due to unsteadiness. After getting back to bed she stated she was nauseated and feeling funny. Will continue to monitor. Addendum: 11/28/16 at 1655 by FRANKI GODDARD RN Ambulation this afternoon Pt was able to get up and walk to the bathroom with min ast. Alethea was then DC at 1700.
[2016-11-28 10:25] LABS: APPEARANCE,URINE TURBID (CLEAR,HAZY); COLOR,URINE YELLOW (YELLOW); OCCULT BLOOD,URINE NEGATIVE (NEGATIVE); UROBILINOGEN,URINE NORMAL (NORMAL)
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
--- NOTE | 2016-11-28 16:45 | PCM.PNMED ---
Subjective Date of Service Nov 28, 2016 Subjective Ms. Betty Landry is a 21-year-old female with a past medical history significant for depression, multiple suicide attempts, bipolar and possible personality disorder who presents to the [facility] emergency department after polymedication overdose. Day before admission the patient came home around 5 went to bed and stated that she just wanted the thoughts to go away and around 10:30 to 11:30pm she states that she took all the medications from her bottles and medication organizer. This consists of roughly half a bottle Klonopin, and 8 to a quarter bottle of propranolol, meloxicam, Prozac, Lamictal which she subsequently washed out with half a bottle of wine. Around 3 - 4 AM her stepfather hurt her vomiting but did not check her until 6 before work. Around 6 AM patient was confused, slow, weak and limp with slurred and sometimes incomprehensible speech. She told her mother that she took all of her pills. She also admits to recent cocaine use in large amounts and methamphetamine use recently and heroin use within the last year. Her vitals remained stable and she continued to protect her airway. Her labs were unremarkable aside from positive test and hCG around 2500 which corresponds to a 4-6 weeks gestation. She does not know her date of her last menstrual cycle. She claims that she was trying to commit suicide however we are going to try to get her racing thoughts to stop. She states that she desires to have a happy life and a good life. She did not know she was and was very concerned about the baby's health once told of the news. Overnight: No acute overnight events: Today: Patient is still exhibiting slow motor skills and communication. She is alert and oriented x3 and speaks clearly. She continues to have urinary retention and diplopia. Nystagmus is constant. Nausea and vomiting has decreased. Exam Vital Signs Vital Sign - Last Date Time Temp Pulse Resp B/P Pulse Ox O2 Delivery O2 Flow Rate FiO2 11/28/16 16:25 37.4 84 16 102/62 99 Room Air 11/27/16 11:04 2 Intake and Output 11/27/16 11/27/16 11/28/16 Cumulative From/Thru 15:00 23:00 07:00 11/27/16 06:54 - 11/28/16 06:21 Intake Total 2000 ml 788 ml 2788 ml Output Total 650 ml 200 ml 850 ml Balance 2000 ml -650 ml 588 ml 1938 ml Intake Oral 0 ml 0 ml IV Total 2000 ml 788 ml 2788 ml Output Urine Total 525 ml 200 ml 725 ml Emesis 125 ml 125 ml Exam General: Pt laying in bed in no acute distressw. Well-developed. Thin. Appropriately interactive, slow motor skills. HEENT: Normocephalic, atraumatic. External ears without defect. Pupils equal, round, minimally responsive, not pinpoint or dilated, vertical and horizontal nystagmus. Oropharynx free of erythema with moist mucosa. Normal dentition. Cardiovascular: Mildly tachycardic rate with normal rhythm with no murmurs, rubs , or gallops appreciated Pulmonary: Clear to auscultation bilaterally with no crackles, wheezes, or rhonchi. Normal respiratory effort with no use of accessory muscles. Abdomen: Bowel tones present. Soft, nontender, nondistended. No hepatosplenomegaly or masses appreciated. Extremities: No clubbing, cyanosis, edema, or lymphadenopathy appreciated. Skin: Normal temperature, turgor, and texture; no rash, ulcers, or subcutaneous nodules appreciated. Neurological: Cranial nerves grossly intact. Normal muscle strength, tone, and bulk. Reflexes, coordination, and sensory function within normal limits. No known gait impairment. Psychiatric: Slow speech, clear and quiet. Not confused. Alert and oriented to person, place, and time. IVs and Medications Medications Reviewed: Medications were reviewed in detail Lab and Diagnostics Result Diagram: 11/28/16 0406 11/28/16 0406 Assessment & Plan The patient is a 21-year-old female following significant poly-medication overdose. This consists of roughly half a bottle Klonopin, and 1/8th to a 1/4 bottle of propranolol, meloxicam, Prozac, Lamictal which she subsequently washed out with half a bottle of wine. Around 3 - 4 AM her stepfather hurt her vomiting but did not check her until 6 before work. Around 6 AM patient was confused, slow, weak and limp with slurred and sometimes incomprehensible speech. She told her mother that she took all of her pills. She also admits to recent cocaine use and methamphetamine use recently and heroin use within the last year. In the emergency department her vitals remained stable and she continued to protect her airway. Her labs were unremarkable aside from positive test and hCG around 2500 which corresponds to a 4-6 weeks gestation. She does not know her date of her last menstrual cycle. She claims that she was trying to commit suicide however we are going to try to get her racing thoughts to stop. She states that she desires to have a happy life and a good life. She did not know she was and was very concerned about the baby's health once told of the news. 1. Suicide attempt with Poly-medication Overdose. - Secondary depression and poor coping mechanisms for stress of daily life. - Propranolol, Klonopin, lamotrigine, meloxicam, fluoxetine, hydroxyzine, trazodone. - Continue supportive care. - Advance diet as tolerated. - IV fluids @ 80 ml/hr NS. - Sitter and room. - Psychiatric consult. 2. Acute urinary retention. Present on admission. Active. - Secondary to medication overdose most likely beta mihir and possibly trazodone. - Claire in place, will try to walk today and possibly attempt to remove Claire. 3. , unspecified gestational age. Present on admission. Active. - Beta HCG 2546- roughly 4-6 weeks gestational age. - Schedule transvaginal ultrasound ordered. - Obstetrics called. Will see patient following US results. 4. Acute encephalopathy, present on admission. Active. - Second to Poly-medication overdose. - Treatment per above. Chronic Depression Chronic PTSD Possible Bipolar or borderline personality disorder. History of multiple suicide attempts. Acetaminophen for mild pain when necessary. Bowel regimen Senna and MiraLAX scheduled and PRN. Zofran when necessary for nausea and vomiting. SubQ heparin held for now. SCDs in place. High-risk medications: Disposition: Likely here for > 2 midnights. Dependent upon recovery from overdose and gestational status. Will be discharged to possible psychiatric inpatient. Pain Evaluation: Adequate Pain Control Attending Statement The patient was seen and examined together with Dr. Berry on 11/28/2016 and I agree with the history, exam and plan as outlined in the note above. . TOMMY BERRY DO Nov 28, 2016 16:45 Elver Ortega MD Nov 29, 2016 08:34
--- NOTE | 2016-11-28 17:13 | NUR ---
Social Work: Screen D: Per EMR review, pt is a 21 year old female admitted for overdose. Pt is [employer] insurance. NOK is pt's mother Sharri Forte. PCP is EDSON Sher. Readmit score is moderate, 4/8. Advanced directives information provided to pt. Pt was brought to [facility] following a suicide attempted via polysubstance use (psychiatric medications and ETOH). Pt was thought to require intubation however this was not necessary. UDS was negative for all illicit substances; pt test is positive with approximately gestation age of 4-6 weeks, which she was not aware of when attempting suicide. Psychiatry is following the pt. Psych notes indicate pt has a complex psychiatric history and may require inpatient psych hospitalization. Pt has been hospitalized for psychiatric management in the past. Reference psych notes for further details. A: Pt who lives at home with her mother. P: Evolving; pt is not yet medically stable for MH assessment. As psychiatry is already involved and following this pt, social work will defer assessment to psych unless requested by MD or Psychiatry. MDS MANAGER will continue to follow and assist with discharge planning needs. OBINNA Cano
--- NOTE | 2016-11-28 19:39 | DRSVH ---
PROCEDURE: US OB<14 WKS+OB TRANSVAG INDICATIONS: B HCG 2400 OUTSIDE/PRIOR DATING DATA: Last menstrual period (LMP): Not available. LMP-based estimated date of delivery (JANESSA): Not available. First dating scan (date and location): This study, 11/28/16. Estimated date of delivery (JANESSA) from first dating scan: Assuming viable gestation from the mean sac diameter the current estimated gestational age would be 5 weeks 3 days plus or -7 days and the estim ated date of delivery would be centered on 07/28/17.. TECHNIQUE: Real-time scanning was performed of the fetus and maternal pelvic organs, with image documentation. Endovaginal scanning was also performed to better visualize the fetus and maternal ovaries. COMPARISON: None. FINDINGS: Embryo: Yolk sac seen, intrauterine gestational sac has a mean sac diameter that yields a estimated gestational age of 5 weeks 3 days, plus or -7 days. A mean sac diameter was calculated as 6.8 mm. Measurement variability in dating: +/- 4 weeks by LMP, +/- 7 days by mean sac diameter (use before 6 weeks gestation if crown-rump length not able to be measured), +/- 5 days by crown-rump length (6-12 weeks gestation). Maternal organs: Ovaries normal considering gestational status.. Limited images through the kidneys demonstrate no hydronephrosis. IMPRESSION: Definite intrauterine gestation but too early to register cardiac activity or natu re a crown-rump length. Rather, and internal yolk sac is seen within the gestational sac with a mean sac diameter yielding a current estimated gestational age of 5 weeks 3 days, plus or -7 days. There fore, the estimated date of delivery would be projected to be centered on 07/28/17, with a measuremen t variability of plus or -7 days. Followup in 10 days-2 weeks would allow measurement of crown-rump length with measurement variability of plus or -5 days. Followup anatomic survey at 22 weeks g estation is recommended. Dictated by: Kieran Valle M.D. on 11/28/2016 at 19:33 Approved by: Kieran Valle M.D. on 11/28/2016 at 19:37
[2016-11-29] VITALS (8 sets, daily range): BP systolic 92–102; BP diastolic 46–58; PULSE 69–82; RESP 14–18; O2SAT 98–99
--- NOTE | 2016-11-29 00:42 | NUR ---
Urinary retention: Claire d/c per shift report @ 5pm- after multiple attempts at 11 pm pt still had not voided. Bladder scaned preformed showing >280 in bladder, in addition pt c/o urge to urinate. Night resident made aware. Order received for In and out cath. Cath performed per orders- 400cc yadira urine output noted. Will continue to assess. Addendum: 11/29/16 at 0555 by VALENTIN BERGERON RN Pt up to the BR x2 this am - still unable to void. Bladder scan showing around 200ml in bladder- will continue to assess.
--- NOTE | 2016-11-29 00:44 | NUR ---
Forearm laceration: Koban dressing to Left forearm noted to be too tight. Dressing removed, wound assessed. Wound noted to be unappropriated with drainage. Area cleaned with Normal saline and non- adhesive gauze / eusebia wrap applied. Wound care consult ordered.
[2016-11-29] MEDS: 0.9% Sodium Chloride 1,000 ML IV SCH ×2 (08:27→21:14)
[2016-11-29] MEDS: Ondansetron 2 mg/mL 2 mL Inj IVPUSH PRN (08:41)
--- NOTE | 2016-11-29 17:26 | PCM.PNMED ---
Subjective Date of Service Nov 29, 2016 Subjective Overnight: Pt had some mild urinary retention, but otherwise uneventful overnight. Today: She still appears to be slightly altered but improving. She reports blurry vision and some urinary retention. No other complaints at this time. She denies suicidal intention today. Exam Vital Signs Vital Sign - Last Date Time Temp Pulse Resp B/P Pulse Ox O2 Delivery O2 Flow Rate FiO2 11/29/16 17:12 36.7 81 17 102/58 98 Room Air 11/27/16 11:04 2 Intake and Output 11/28/16 11/28/16 11/29/16 Cumulative From/Thru 14:59 22:59 06:59 11/27/16 06:54 - 11/29/16 05:56 Intake Total 829 ml 1558 ml 5175 ml Output Total 300 ml 400 ml 1550 ml Balance 529 ml 1158 ml 3625 ml Intake Oral 600 ml 600 ml IV Total 829 ml 958 ml 4575 ml Output Urine Total 300 ml 400 ml 1425 ml Emesis 125 ml # Bowel Movements 0 0 Exam General: Pt laying in bed in no acute distress. Well-developed. Thin. Appropriately interactive, slow motor skills. HEENT: Normocephalic, atraumatic. External ears without defect. Pupils equal, round, minimally responsive, not pinpoint or dilated, vertical and horizontal nystagmus. Cardiovascular: Regular rate and rhythm with no murmurs, rubs, or gallops appreciated Pulmonary: Clear to auscultation bilaterally with no crackles, wheezes, or rhonchi. Normal respiratory effort with no use of accessory muscles. Abdomen: Bowel tones present. Soft, nontender, nondistended. No hepatosplenomegaly or masses appreciated. Extremities: No clubbing, cyanosis, edema, or lymphadenopathy appreciated. Skin: Normal temperature, turgor, and texture; no rash, ulcers, or subcutaneous nodules appreciated. Neurological: Cranial nerves grossly intact. Normal muscle strength, tone, and bulk. Reflexes, coordination, and sensory function within normal limits. No known gait impairment. Psychiatric: Slow speech, clear and quiet. Not confused. Alert and oriented to person, place, and time. Lab and Diagnostics Result Diagram: 11/28/16 0406 11/28/16 0406 Assessment & Plan The patient is a 21-year-old female following significant poly-medication overdose with clonazepam, propranolol, meloxicam, Prozac, Lamictal and half a bottle of wine. test was positive in the ED. Admitted for attempted suicide and overdose on multiple medications. 1. Suicide attempt with Poly-medication Overdose. - Secondary depression and poor coping mechanisms for stress of daily life. Denies suicidal ideation today. - Propranolol, Klonopin, lamotrigine, meloxicam, fluoxetine, hydroxyzine, trazodone. - Continue supportive care. - Advance diet as tolerated. - IV fluids @ 80 ml/hr NS. - Sitter in room - Psychiatric consult. 2. Acute urinary retention. Present on admission. Improving - Secondary to medication overdose most likely beta mihir and possibly trazodone. - Discontinued Claire; check PVRs intermittently. 3. , unspecified gestational age. Present on admission. Active. - Beta HCG 2546- roughly 4-6 weeks gestational age, supported by TVUS. - Talked to Dr. Cheatham; she recommends repeat US in 2 weeks and follow up with OBGYN. 4. Acute encephalopathy, present on admission. Active. - Second to Poly-medication overdose. - Treatment per above. 5. Left wrist wound, acute. - Wound on left wrist from self-cutting; pt pulled out sutures. - Wound care ordered Chronic Depression Chronic PTSD Possible Bipolar or borderline personality disorder. History of multiple suicide attempts. Acetaminophen for mild pain when necessary. Bowel regimen Senna and MiraLAX scheduled and PRN. Zofran when necessary for nausea and vomiting. SubQ heparin held for now. SCDs in place. High-risk medications: Disposition: Likely here for > 2 midnights. Dependent upon recovery from overdose and gestational status. Will be discharged to possible psychiatric inpatient. Pain Evaluation: Adequate Pain Control Resuscitation Status: CPR: Attempt Resuscitation Attending Statement The patient was seen and examined together with Dr. Graham on 11/29/2016 and I agree with the history, exam and plan as outlined in the note above. . Skip Graham Nov 29, 2016 17:26 Elver Ortega MD Dec 12, 2016 16:45
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
--- NOTE | 2016-11-29 18:47 | NUR ---
Urinary retention/LOC Pt able to urinate a few times this shift. Able to ambulate 1 person to SBA to bathroom. Pt still states her vision is blurry but improving with time. She is A&O x3, sleeping between patient care and MD visits. Mom at bedside most of shift as well as sitter present. Pt appropriate and talkative at this time. Moving independently in bed.
[2016-11-30 03:19] VITALS: BP 90/56; PULSE 86; RESP 18; O2SAT 98
[2016-11-30 04:03] LABS: BASOPHILS % (AUTO) 0.2 % (0-3); EOSINOPHILS % (AUTO) 1.8 % (0-5); MONOCYTES % (AUTO) 13.4 % (4-12); Mean Corpuscular Hemoglobin 31.3 pg (27.0-35.0); Mean Corpuscular Volume 91.4 fL (81-100); Platelet Count 162 bil/L (150-400)
--- NOTE | 2016-11-30 06:37 | NUR ---
No Tele / No Harm / Hypotensive No c/o chest pain, pressure or palpitations, Tele DCd, HR regular. No Plan to her herself, no suicidal ideation. No plan to hurt her unborn child. Hypotensive tonight with SBPs in the 90s. No c/o SOB, RA sats 98-99%. Up with 1 person assist, gait unsteady. Using call light appropriately for needs.
[2016-11-30 10:29] VITALS: BP 80/48; PULSE 82; RESP 16; O2SAT 97
[2016-11-30] MEDS: 0.9% Sodium Chloride 1,000 ML IV SCH (10:37)
--- NOTE | 2016-11-30 11:08 | PCM.PNMED ---
Subjective Date of Service Nov 30, 2016 Subjective Overnight: No acute overnight events. She voided without difficulty. Today: She still appears to be slightly altered but improving. Urinary retention blurry vision of results. No other complaints at this time. She denies suicidal intention today. Exam Vital Signs Vital Sign - Last Date Time Temp Pulse Resp B/P Pulse Ox O2 Delivery O2 Flow Rate FiO2 11/30/16 10:29 37.0 82 16 80/48 97 Room Air 11/27/16 11:04 2 Intake and Output 11/29/16 11/29/16 11/30/16 Cumulative From/Thru 15:00 23:00 07:00 11/27/16 06:54 - 11/30/16 06:07 Intake Total 2030 ml 1382 ml 8587 ml Output Total 1300 ml 1000 ml 3850 ml Balance 730 ml 382 ml 4737 ml Intake Oral 1050 ml 600 ml 2250 ml IV Total 980 ml 782 ml 6337 ml Output Urine Total 1300 ml 1000 ml 3725 ml Emesis 125 ml # Bowel Movements 0 Exam General: Pt laying in bed in no acute distress. Well-developed. Thin. Appropriately interactive, slow motor skills. HEENT: Normocephalic, atraumatic. External ears without defect. Pupils equal, round, minimally responsive, not pinpoint or dilated, vertical and horizontal nystagmus. Cardiovascular: Regular rate and rhythm with no murmurs, rubs, or gallops appreciated Pulmonary: Clear to auscultation bilaterally with no crackles, wheezes, or rhonchi. Normal respiratory effort with no use of accessory muscles. Abdomen: Bowel tones present. Soft, nontender, nondistended. No hepatosplenomegaly or masses appreciated. Extremities: No clubbing, cyanosis, edema, or lymphadenopathy appreciated. Skin: Normal temperature, turgor, and texture; no rash, ulcers, or subcutaneous nodules appreciated. Neurological: Cranial nerves grossly intact. Normal muscle strength, tone, and bulk. Reflexes, coordination, and sensory function within normal limits. No known gait impairment. Psychiatric: Slow speech, clear and quiet. Not confused. Alert and oriented to person, place, and time. IVs and Medications Medications Reviewed: Medications were reviewed in detail Lab and Diagnostics Result Diagram: 11/30/16 0343 11/30/16 0343 Assessment & Plan The patient is a 21-year-old female following significant poly-medication overdose with clonazepam, propranolol, meloxicam, Prozac, Lamictal and half a bottle of wine. test was positive in the ED. Admitted for attempted suicide and overdose on multiple medications. 1. Suicide attempt with Poly-medication Overdose. - Secondary depression and poor coping mechanisms for stress of daily life. Denies suicidal ideation today. - Propranolol, Klonopin, lamotrigine, meloxicam, fluoxetine, hydroxyzine, trazodone. - Continue supportive care. - Advance diet as tolerated. - Sitter in room - Psychiatric consult. Dr. Lemos will see patient in the morning. - She has offered clarification to her comments on admission: She states that she was trying to commit suicide and that she also regrets it. She cares for her family and denies suicidal ideation at this point. She continues to maintain that she has more reasons to live now given that she is now, has a good family with great support, and a loving boyfriend. - She states that she will go and complete whatever rehab is necessary, including inpatient. 2. Acute urinary retention. Present on admission. Improving. - Secondary to medication overdose most likely beta mihir and possibly trazodone. - Discontinued Claire; check PVRs intermittently. 3. , unspecified gestational age. Present on admission. Active. - Beta HCG 2546- roughly 4-6 weeks gestational age, supported by TVUS. - Repeat US in 2 weeks. Patient's mother states that she has an OB that they would like to continue to see as an outpatient. 4. Acute encephalopathy, present on admission. Improving. - Second to Poly-medication overdose. - Treatment per above. 5. Left wrist wound, acute. - Wound on left wrist from self-cutting; pt pulled out sutures. - Wound care ordered 6. History of eating disorder, presently patient. Active. - Albumin 3.0 - Patient's family states that she will start outpatient dietitian, nutritional management, and counseling. Chronic Depression Chronic PTSD Possible Bipolar or borderline personality disorder. History of multiple suicide attempts. Acetaminophen for mild pain when necessary. Bowel regimen Senna and MiraLAX scheduled and PRN. Zofran when necessary for nausea and vomiting. SubQ heparin held for now. SCDs in place. High-risk medications: Disposition:possible discharge tomorrow, discharge to inpatient psych . Pain Evaluation: Adequate Pain Control Attending Statement The patient was seen and examined together with Dr. Berry on 11/30/2016 and I agree with the history, exam and plan as outlined in the note above. . TOMMY BERRY DO Nov 30, 2016 11:08 Sarbjit Sanchez MD Nov 30, 2016 15:08
--- NOTE | 2016-11-30 11:27 | NUR ---
Wound Care Wound evaluation order received, patient sen at bedside, mother present. 21 yo female with injuries at her dorsal left forearm consistent with self mutilation injury. Pt has two open areas, proximal injury 3 cm W x 0.5 cm L x 0.1 cm D, distal injury 4 cm W x 1.5 cm W x 0.2 cm D. Cleaned with saline and redressed with xeroform and conform wrap. No s/s of infection, mother instructed in dressing change and provided with supplies. Stable injuries, will not need wound care follow up.
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
[2016-11-30 16:25] VITALS: BP 100/62; PULSE 78; RESP 14; O2SAT 98
--- NOTE | 2016-11-30 17:27 | NUR ---
1:1 Observation Discontinued Her 1:1 observation was discontinued about 1600 due to compliant behavior, happy/calm demeanor, psych consult assessment/recommendations, low suicide score (9), and no suicidal plan or thoughts. Dr. Burns and charge nurse aware. Her mother has remained in the room most of the day assisting with care and being a positive emotional support for her daughter. Care continues.
[2016-11-30 21:37] VITALS: BP 119/77; PULSE 85; RESP 20; O2SAT 99
--- NOTE | 2016-11-30 23:02 | NUR ---
Affect Pt states that she "feels much better about herself." She adds that "my boyfriend talked to his parents about our baby and they are very supportive and simply want me to get beter." Pt readily smiles. She is interactive with staff. Denies pain. Denies any suicide ideation thoughts to harm herself at this time. Pt aware to report to the nurse if anything changes in concerning suicide ideation' Care ongoing.
[2016-12-01 00:52] VITALS: BP 98/63; PULSE 73; RESP 15; O2SAT 99
[2016-12-01 04:19] VITALS: BP 103/66; PULSE 72; RESP 16; O2SAT 100
[2016-12-01 09:04] VITALS: BP 108/65; PULSE 77; RESP 16; O2SAT 99
[2016-12-01 09:59] LABS: BASOPHILS % (AUTO) 0.3 % (0-3); EOSINOPHILS % (AUTO) 3.5 % (0-5); MONOCYTES % (AUTO) 10.9 % (4-12); Mean Corpuscular Hemoglobin 31.3 pg (27.0-35.0); Mean Corpuscular Volume 91.7 fL (81-100); NEUTROPHILS % (AUTO) 64.6 % (40-74); Platelet Count 165 bil/L (150-400)
[2016-12-01 10:08] LABS: Magnesium 1.9 mg/dL (1.6-2.6)
--- NOTE | 2016-12-01 11:44 | NUR ---
Activity Pt up to the bathroom SBA and using furniture to steady herself. No c/o dizziness just weakness and a little unsteady. Will inform MD of observation for discharge.
[2016-12-01] MEDS ORDERED: Potassium Chloride 20 mEq SR Tablet PO ONE (12:10)
--- NOTE | 2016-12-01 13:14 | PCM.DIMED ---
TOMMY BERRY DO 12/01/16 1141: Discharge Instructions Date of Service Dec 01, 2016 Dates of Hospitalization Nov 27, 2016 at 10:06 Discharge Diagnosis Discharge Diagnosis 1. Suicide attempt with Poly-medication Overdose. Resolved 2. Acute urinary retention. Present on admission. Resolved. 3. , unspecified gestational age. Present on admission. Active. 4. Acute encephalopathy, present on admission. Resolved. 5. Left wrist wound, acute, improved. 6. History of eating disorder, presently patient. Resolved. Diet No restrictions Activity No restrictions Call your provider Fever or Chills, Shortness of breath, Bleeding, Excessive diarrhea Patient Instructions Follow-up plan Follow up with therapy, counseling as advised by Dr. Lemos You'll also need to make a follow up appointment with an REDUCER. It is advised that you schedule a 2 week Ultrasound and office visit. Sarbjit Sanchez MD 12/01/16 1902: Discharge Instructions Attending's Statement The patient was seen and examined together with Dr. Berry on 12/01/2016 and I agree with the instruction and plan as outlined in the note above. . TOMMY BERRY DO Dec 01, 2016 11:41 Sarbjit Sanchez MD Dec 01, 2016 19:02
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
--- NOTE | 2016-12-01 15:33 | PCM.PNPSY ---
Subjective Date of Service Dec 01, 2016 Subjective I spent 60 minutes both reviewing treatment plan and providing supportive/ educational psychotherapy. I spent more than 50% of the time counseling the patient. I reviewed the treatment plan with the patient and discussed options available including the potential risks, benefits and side effects. Betty reports a marked improvement in thought organization and mood stability. Staff reports that she has been active and participating well in her care with staff. She reports sleeping well and denies depression symptoms or suicidal ideation. She denies medication side effects. Patient was able to identify her medications and what they were used to treat. She appeared to understand the need for medications by the questions she asked during our discussion. Current Medications Current Medications Potassium Chloride 40 meq ONCE ONCE PO Last administered on 12/01/16t 13:07; Admin Dose 40 MEQ; Start 12/01/16 at 12:10; Stop 12/01/16 at 12:35; Status DC Mental Status Exam Vital Signs Vital Signs Date Time Temp Pulse Resp B/P Pulse Ox O2 Delivery O2 Flow Rate FiO2 12/01/16 09:04 36.8 77 16 108/65 99 Room Air Appearance: Neat/well groomed (wearing gown, multiple scars on forearms, hair multicolored.) Attitude: Pleasant, Cooperative Behavior: No unusual behavior Affect: Well Modulated/Appropriate Mood: Euthymic Thought Process/Associations: Logical/Sequential, Goal Directed Speech Production: Normal Speech Rate: Normal Speech Articulation: Normal Thought Content: Appropriate Danger to Self/Suicidal Ideati: None Danger to Others: None Consciousness: Alert Orientation: Person, Place ([facility]), Date (end November 2016), Situation Memory: Short Term Memory (Impaired) Estimate Intellectual Function: Average Basis for IQ estimate: Awareness current events, Word use/vocabulary Attention/Concentration & Cogn: Grossly Intact Insight: Good Judgement: Good Result Diagram: 12/01/1692412/01/16924 Mental Health Plan The patient is a 21-year-old female with a long history of trauma , hospitalized following a significant polysubstance overdose. She is no longer experiencing the sequelae of her overdose. The patient is over 5 weeks and does not wish to terminate the . She stated that she and her boyfriend are close And her wanting to go through with the . This complicates her treatments and most medications are not indicated in the first trimester. Reviewed Dr. Ariza consultation and agree with his advice to engage in CBT, DBT, EMDR, and potentially biofeedback. I do not believe she would benefit From inpatient hospitalization at this time. I believe she would be better served Making an alliance with an outpatient psychotherapist. When I met with her she appeared to understand the severity of her recent overdose. We talked about a safety plan and she detailed a reasonable safety plan to me. [place] AXIS I 1. Posttraumatic stress disorder, chronic. 2. Eating disorder, not otherwise specified, by history. 3. Polysubstance use disorder including cocaine and opiates. 4. Major depressive disorder, recurrent type, nonpsychotic. AXIS II Borderline personality disorder. AXIS III Status post polypharmacy overdose. AXIS IV Stressors are noted for chronic mental health issues, substance abuse issues. AXIS V Global Assessment of Functioning current 45. Medications Treatments Recommend patient be discharged to home. Recommend she interview therapists and find a weekly psychotherapist that can help her focus on Improving coping skills I believe she was especially benefit from a course of dialectic behavioral therapy. No psychiatric medications recommended at this time Jean Paul Lemos MD Dec 01, 2016 15:33
--- NOTE | 2016-12-01 15:50 | NUR ---
Discharge Pt left with mother at 1530. IV removed prior to leaving. All discharge instructions gone over and understands that her normal home medications are on hold due to her being in her 1st trimester. Mother in the room when going over instructions and all questions answered. Out patient information given to family and all resource information given. Vitals stable, pt wheeled out to private car with all her belongings.
--- NOTE | 2016-12-01 16:01 | NUR ---
Social Work Note: Discharge Data& Assessment: Per pt is medically ready for discharge. Per Norma HERBERT, pt is cleared to be discharged home with her mother and outpt behavioral health follow up. Betty Landry is a 21 year old female admitted on 11/27/2016 for overdose due to intentional suicide attempt. Pt has been cleared by norma HERBERT (See Norma HERBERT consult for further information). Hospitalist has cleared pt as being medically clear as well. SW met with pt and pt mother at bedside to confirm discharge plan and assess for any unmet needs. Pt confirmed she is not suicidal anymore and has no thoughts of harming herself or others. Pt is hopeful now that she has found out she is . Norma HERBERT and SW provided pt mother with providers in the area that contract with her insurance as well as are familiar with pt's needs. Pt mother appreciative and denies any other needs. Pt mother also confirmed that she is contacting her OB to have pt established with the provider for ongoing care. Pt and pt mother denies any other needs. No other discharge needs identified. Plan: Per pt is medically ready for discharge. Per Norma HERBERT, pt is cleared to be discharged home with her mother and outpt behavioral health follow up. Follow up Provider information has been provided. Pt and pt mother denies any other needs. No other discharge needs identified. OBINNA Ching
== END 2016-12-01 15:30 | disposition home or self-care (01) | DRG 917 ==
LOC: SED 06:36 → PCC 10:06
PROVIDERS: ADMIT Internal Medicine; ATTEND Internal Medicine
PROC: 4A033R1 Measurement of Arterial Saturation, Peripheral, Percutaneous Approach (ICD-10-PCS; principal; 2016-11-27)
DX: T42.4X2A Poisoning by benzodiazepines, intentional self-harm, initial encounter (principal); G92 Toxic encephalopathy; F33.9 Major depressive disorder, recurrent, unspecified; E87.2 Acidosis; T44.7X2A Poisoning by beta-adrenoreceptor antagonists, intentional self-harm, initial encounter; T39.392A Poisoning by other nonsteroidal anti-inflammatory drugs [NSAID], intentional self-harm, initial encounter; T43.222A Poisoning by selective serotonin reuptake inhibitors, intentional self-harm, initial encounter; T42.6X2A Poisoning by other antiepileptic and sedative-hypnotic drugs, intentional self-harm, initial encounter; T51.0X2A Toxic effect of ethanol, intentional self-harm, initial encounter; Y92.019 Unspecified place in single-family (private) house as the place of occurrence of the external cause; F14.90 Cocaine use, unspecified, uncomplicated; F15.90 Other stimulant use, unspecified, uncomplicated; Z33.1 Pregnant state, incidental; F43.12 Post-traumatic stress disorder, chronic; Z72.0 Tobacco use; R33.0 Drug induced retention of urine; F50.9 Eating disorder, unspecified; F60.3 Borderline personality disorder; S61.512D Laceration without foreign body of left wrist, subsequent encounter; X78.8XXD Intentional self-harm by other sharp object, subsequent encounter